=== PATIENT | female | born 1955 | race African-American/Black ===

== ENCOUNTER 2016-10-23 19:52 | Emergency (ER) | payer OTHER ==
[~2016-10-23] VITALS: Ht 161.3 cm; Wt 109.8 kg
[~2016-10-23 19:52] MED LIST: ALEVE220 MG PO; AMLODIPINE10 MG PO; AUGMENTIN 875875 MG PO; CEFUROXIME AXE250 MG PO; COZAAR 50MG TAB50 MG PO; EPINASTINE HCL IO; EPIPEN0.3 MG/0.3 IM; LEVAQUIN500 MG PO; LEVOCETIRIZINE D5 MG PO; LOVAZA1 GM PO; NASONEX0.05 MG/Ac NAS; NYSTOP100000 U/G TOP; PERCOCET 325 MG1 TA2 PO; PERCOCET 5-3251 EACH PO; PROAIR HFA0.09 MG/Ac INH; TOPROL XL 25MG25 MG PO; TRAMADOL50 MG PO; TRIAMCINOL0.1 %/453 TOP; VITAMIN D PO; [UNRECOGNIZED DRUG - OTHER] AD
--- NOTE | 2016-10-23 20:29 | ED DYSPNEA/ASTHMA COMPLAINT ---
History of Present Illness General Chief Complaint: Dyspnea (COPD, CHF, Other) Stated Complaint: DIFFICULTY BREATHING,COUGHING UP BLOOD Source: patient Exam Limitations: no limitations Vital Signs & Intake/Output Vital Signs & Intake/Output Vital Signs Date Time Temp Pulse Resp B/P B/P Pulse O2 O2 Flow FiO2 Mean Ox Delivery Rate 10/23 2341 96.5 79 18 138/79 95 Room Air 10/23 2157 98 10/23 1956 97.8 75 18 154/95 97 Room Air Allergies Coded Allergies: lisinopril (Severe, ANGIODEMA 07/14/15) tomato (Severe, LESIONS ON SCALP 07/14/15) shrimp (Mild, 07/14/15) cat dander (07/14/15) dog dander (07/14/15) grass pollen (07/14/15) pollen extracts (07/14/15) tree and shrub pollen (07/14/15) weed pollen (07/14/15) bacitracin (From Neosporin ([id number])) (Severe, ATE AWAY AT SKIN 07/14/15) neomycin (From Neosporin (dim-gim-dqvjh)) (Severe, ATE AWAY AT SKIN 07/14/15) polymyxin B (From Neosporin (sru-[id number])) (Severe, ATE AWAY AT SKIN 07/14/15) propoxyphene (Intermediate, PASSES OUT 07/14/15) hydrochlorothiazide (PASSES OUT 07/14/15) Uncoded Allergies: COCKROACHES (07/14/15) DUST (07/14/15) EGGPLANT (TONGUE SWELLS AND BLEEDING 09/13/14) Reconcile Medications Albuterol Sulfate (Proair Hfa) 0.09 MG/Actuation TERESSA 2 PUFF INH Q4-6P SHORTNESS OF BREATH (Reported) Albuterol Sulfate (Ventolin Hfa) 90 MCG HFA.AER.AD 2 PUF INH Q4-6 PRN PRN wheeze Amlodipine Besylate (Amlodipine) 10 MG TABLET 1 TAB PO DAILY BP (Reported) Cefuroxime Axetil (Cefuroxime) 250 MG TAB 1 TAB PO Q12 pneumonia CHOLECALCIFEROL (VITAMIN D3) (Vitamin D3) 1 TAB TAB 1 TAB PO DAILY SUPPLEMENT (Reported) EPINASTINE HCL (Epinastine HCl 5 Ml) 5 ML FLORA 1 DROP IO DAILY ALLERGIES ( Reported) Epinephrine (Epipen 2-Jagdeep) 0.3 MG/0.3 ML KIT 1 INJ IM DAILY PRN ANAPHYLAXIS ( Reported) Fluconazole (Diflucan) 150 MG TABLET 1 TAB PO ONCE yeast infection each week x 2 doses FLUOCINOLONE ACETONIDE OIL (Dermotic) 20 ML OIL 3 DROP AD TID INFECTION ( Reported) Levofloxacin (Levaquin) 500 MG TABLET 1 TAB PO DAILY bronchitis Losartan (Cozaar) 50 MG TAB 1 TAB PO DAILY HYPERTENSION (Reported) Naproxen Sodium (Aleve) 220 MG TABLET 1 TAB PO DAILY PRN PAIN (Reported) Wckxk-1-Pfih Ethyl Esters (Lovaza) 1 GM CAP 5 GM PO DAILY CHOLESTEROL ( Reported) Oxycodone HCl/Acetaminophen (Percocet 5-325 MG Tablet) 1 EACH TABLET 1-2 TAB PO Q6P PRN PAIN Oxycodone HCl/Acetaminophen (Percocet 5-325 MG Tablet) 5 MG-325 MG TABLET 1 TAB PO 4XDP PRN PAIN six...[id number] Prednisolone 15 MG/5 ML SOLUTION 10 ML PO QDAY ASTHMA Triage Note: PT TO ED C/O DIFFICULTY BREATHING SINCE 3RD WEEK IN SEPTEMBER. FINISHED AUGMENTIN ON 10/14. NEVER WENT AWAY. STATES GREEN SPUTUM WITH OCCASIONAL BLOOD. AFEBRILE IN TRIAGE. O2 SAT 97% ON RA. WAS 93% AFTER AMBULATING INTO TRIAGE Triage Nurses Notes Reviewed? yes Onset: Gradual Duration: week(s): Timing: recent history Severity: moderate Activities at Onset: none Modifying Factors: Improves With: rest. Worsens With: other (cough). Associated Symptoms: cough HPI: 61 yo woman h/o lupus, family history of PE, h/o reactive airway disease, presents with 3 weeks of cough and phlegm. She notes that she had a trial of augmentin, "which helped the phlegm a little bit... but now I have little bits of blood mixed in with the phlegm." She notes that she has right sided chest wall tenderness to palpation, worse with coughing. She has no fever, chills, nausea, vomiting, diarrhea. She notes, "I fell a few months ago and banged my knee and now I feel a lump on my knee cap." Past History Travel History Traveled to [place] past 21 day No Medical History Any Pertinent Medical History? see below for history Neurological: MIGRAINE (SEASONAL) EENT: CONJUNCTIVITIS PHARYNGITIS Cardiovascular: hypertension, hyperlipidemia Respiratory: bronchitis, COPD, pneumonia, HYPOXIA Gastrointestinal: ACID REFLUX HIGH CHOL Hepatic: NONE Renal: NONE Musculoskeletal: chronic back pain, disk herniation, fracture, osteoarthritis, LUPUS Psychiatric: chronic pain disorder Endocrine: PRE DIABETIC Blood Disorders: anemia Cancer(s): NONE REBAR WORKER/Reproductive: fibroid, miscarriage History of MRSA: No History of VRE: No History of CDIFF: No Tetanus Vaccine: 11/12/13 Surgical History Surgical History: non-contributory Psychosocial History Who do you live with Friend Services at Home None What is your primary language Georgian Tobacco Use: Never used ETOH Use: occasional use Illicit Drug Use: denies illicit drug use Family History Hx Contributory? No Review of Systems Review of Systems Constitutional: Reports: no symptoms. EENTM: Reports: no symptoms. Respiratory: Reports: no symptoms. Cardiovascular: Reports: no symptoms. GI: Reports: no symptoms. Genitourinary: Reports: no symptoms. Musculoskeletal: Reports: no symptoms. Skin: Reports: no symptoms. Neurological/Psychological: Reports: no symptoms. Hematologic/Endocrine: Reports: no symptoms. Immunologic/Allergic: Reports: no symptoms. All Other Systems: Reviewed and Negative Physical Exam Physical Exam General Appearance: well developed/nourished, mild distress Head: atraumatic, normal appearance Eyes: Bilateral: normal appearance. Ears, Nose, Throat: normal pharynx, normal ENT inspection Neck: normal inspection, supple, full range of motion Respiratory: normal breath sounds, rhonchi, right sided chest wall tenderness to palpation. Cardiovascular: regular rate/rhythm Gastrointestinal: normal bowel sounds, soft, non-tender, no organomegaly Extremities: normal inspection, normal capillary refill, normal range of motion, no edema Neurologic/Psych: no motor/sensory deficits, awake, alert, oriented x 3 Skin: intact, normal color, warm/dry Core Measures ACS in differential dx? No Severe Sepsis Present: No Septic Shock Present: No Progress Differential Diagnosis: asthma, bronchitis, COPD, musculoskeletal pain, pulmonary embolism Plan of Care: Orders Procedure Date/time Status URINALYSIS 10/23 2102 Complete TROPONIN LEVEL 10/23 2028 Complete D-DIMER 10/23 2028 Complete COMPREHENSIVE METABOLIC PANEL 10/23 2028 Complete CBC WITHOUT DIFFERENTIAL 10/23 2028 Complete EKG 10/23 2028 Active Laboratory Tests 10/23/162127: Anion Gap 10, Estimated GFR > 60, BUN/Creatinine Ratio 17.1, Glucose 92, Calcium 9.4, Total Bilirubin 0.6, AST 29, ALT 45, Alkaline Phosphatase 131 H, Troponin I < 0.01, Total Protein 7.6, Albumin 4.0, Globulin 3.6, Albumin/Globulin Ratio 1.1 10/23/162107: Urinalysis LIGHT H, Urine Color YEL, Urine Clarity HAZY H, Urine pH 6.0, Ur Specific [place] 1.020, Urine Protein NEG, Urine Ketones NEG, Urine Nitrite NEG, Urine Bilirubin NEG, Urine Urobilinogen 0.2, Ur Leukocyte Esterase NEG, Ur Microscopic SEDIMENT EXAMINED, Urine RBC 1-3, Urine WBC 1-3 H, Ur Epithelial Cells FEW, Urine Bacteria FEW H, Urine Mucus FEW, Urine Hemoglobin TRACE-INTACT , Urine Glucose NEG 10/23/162044: D-Dimer High Sensitivty < 200, CBC w Diff NO MAN DIFF REQ, RBC 5.25, MCV 87.0, MCH 28.0, RDW 14.5, MPV 8.1, Gran % 54.0, Lymphocytes % 35.1, Monocytes % 7.1, Eosinophils % 2.9, Basophils % 0.9, Absolute Granulocytes 3.6, Absolute Lymphocytes 2.3, Absolute Monocytes 0.5, Absolute Eosinophils 0.2, Absolute Basophils 0.1, PUBS MCHC 32.2 L Diagnostic Imaging: Viewed by Me: Radiology Read. Discussed w/RAD: Radiology Read. Radiology Impression: right knee... osteoarthrosis CXR Impression: no acute abnormality, no infiltrates, normal size heart, normal mediastinum Initial ED EKG: normal axis, normal intervals, normal p-waves, normal QRS complex, normal sinus rhythm Comments: PATIENT: JAYDEN RICE PRESENT AGE: 61 PATIENT ACCOUNT NO: [id number] : 56 LOCATION: [facility] ORDERING PHYSICIAN: DORIS COLE MD SERVICE DATE: 10/23/16 EXAM TYPE: RAD - XRY-KNEE COMPLETE RIGHT EXAMINATION: XR KNEE, RIGHT CLINICAL INFORMATION: Right knee pain. COMPARISON: None. TECHNIQUE: AP, lateral and bilateral oblique views of the right knee. FINDINGS: No appreciable fracture or dislocation of the right knee. There is mild tricompartmental osteoarthrosis of the right knee joint, notably within the medial tibiofemoral and patellofemoral compartments. A large enthesophyte is identified at the insertion point of the quadricep tendon. No significant joint effusion is identified. No abnormal soft tissue calcifications are noted. IMPRESSION: No acute osseous or articular abnormality of the right knee. Mild tricompartmental osteoarthrosis of the right knee joint, notably within the medial tibiofemoral and patellofemoral compartments. No significant right knee joint effusion. DICTATED BY: CHERY LOPEZ MD DATE/TIME DICTATED:10/23/162140 [employer]INSPRING STRIP GAUGER:FARZAD DATE/TIME TRANSCRIBED:10/23/162140 CONFIDENTIAL, DO NOT COPY WITHOUT APPROPRIATE AUTHORIZATION. <Electronically signed in Other Vendor System> SIGNED BY: CHERY LOPEZ MD 10/23/162145 PATIENT: JAYDEN RICE PRESENT AGE: 61 PATIENT ACCOUNT NO: [id number] : 56 LOCATION: [facility] ORDERING PHYSICIAN: DORIS COLE MD SERVICE DATE: 10/23/16-2028 EXAM TYPE: RAD - XRY-CHEST XRAY, PA AND LATERAL EXAMINATION: XR CHEST CLINICAL INFORMATION: Cough, dyspnea. COMPARISON: Chest x-ray 07/08/2016. TECHNIQUE: 2 views of the chest were obtained. FINDINGS: The lungs are well-expanded and clear without focal airspace consolidation. No pleural effusions or pneumothoraces are identified. Cardiomediastinal contours are within normal limits. Soft tissues are unremarkable. No acute osseous abnormality is identified. IMPRESSION: No acute pulmonary process. DICTATED BY: CHERY LOPEZ MD DATE/TIME DICTATED:10/23/162140 MAINSPRING STRIP GAUGER:FARZAD DATE/TIME TRANSCRIBED:10/23/162140 CONFIDENTIAL, DO NOT COPY WITHOUT APPROPRIATE AUTHORIZATION. <Electronically signed in Other Vendor System> SIGNED BY: CHERY LOPEZ MD 10/23/162144 Departure Departure Disposition: HOME OR SELF CARE Condition: Stable Clinical Impression Primary Impression: Bronchitis Secondary Impressions: Chest wall pain, Osteoarthrosis Referrals: SUSANNAH DOWELL APRN (PCP/Family) Departure Forms: Customer Survey General Discharge Information Prescriptions: Current Visit Scripts Levofloxacin (Levaquin) 1 TAB PO DAILY #10 TAB Albuterol Sulfate (Ventolin Hfa) 2 PUF INH Q4-6 PRN PRN wheeze #1 INHAL Ref 1 Oxycodone HCl/Acetaminophen (Percocet 5-325 MG Tablet) 1 TAB PO 4XDP PRN PAIN #6 TAB six...[id number] Prednisolone 10 ML PO QDAY #50 ML Fluconazole (Diflucan) 1 TAB PO ONCE #1 TAB each week x 2 doses Comments 10/23/16, 23:35pm... discussed at length... labs benign, dimer/troponin negative... pt safe for discharge.... will rx with levaquin/steroids/ albuterol... diflucan given history of yeast infections. Close follow up encouraged. Critical Care Note Critical Care Note Critical Care Time: non-applicable
[2016-10-23 21:05] LABS: ABSOLUTE BASOPHIL COUNT 0.1 /CUMM (0.0-0.2); ABSOLUTE EOSINOPHIL COUNT 0.2 /CUMM (0.0-0.7); ABSOLUTE GRANULOCYTE CT 3.6 /CUMM (1.4-6.5); ABSOLUTE LYMPH COUNT 2.3 /CUMM (1.2-3.4); ABSOLUTE MONOCYTE COUNT 0.5 /CUMM (0.10-0.60); BASOPHIL % 0.9 % (0.0-2.0); EOSINOPHIL % 2.9 % (0-5); HEMATOCRIT 45.7 % (37-47); MEAN CORPUSCULAR HGB CONC 32.2 G/DL (33.0-37.0); MEAN PLATELET VOLUME 8.1 FL (7.4-10.4); PLATELET COUNT 287 /CUMM (130-400); RBC DISTRIBUTION WIDTH 14.5 % (11.5-14.5); RED BLOOD CELL CT 5.25 /CUMM (4.20-5.40); WHITE BLOOD CELL COUNT 6.6 /CUMM (4.8-10.8)
--- NOTE | 2016-10-23 21:45 | RADIOLOGY REPORT ---
EXAMINATION: XR CHEST CLINICAL INFORMATION: Cough, dyspnea. COMPARISON: Chest x-ray 07/08/2016. TECHNIQUE: 2 views of the chest were obtained. FINDINGS: The lungs are well-expanded and clear without focal airspace consolidation. No pleural effusions or pneumothoraces are identified. Cardiomediastinal contours are within normal limits. Soft tissues are unremarkable. No acute osseous abnormality is identified. IMPRESSION: No acute pulmonary process.
--- NOTE | 2016-10-23 21:46 | RADIOLOGY REPORT ---
EXAMINATION: XR KNEE, RIGHT CLINICAL INFORMATION: Right knee pain. COMPARISON: None. TECHNIQUE: AP, lateral and bilateral oblique views of the right knee. FINDINGS: No appreciable fracture or dislocation of the right knee. There is mild tricompartmental osteoarthrosis of the right knee joint, notably within the medial tibiofemoral and patellofemoral compartments. A large enthesophyte is identified at the insertion point of the quadricep tendon. No significant joint effusion is identified. No abnormal soft tissue calcifications are noted. IMPRESSION: No acute osseous or articular abnormality of the right knee. Mild tricompartmental osteoarthrosis of the right knee joint, notably within the medial tibiofemoral and patellofemoral compartments. No significant right knee joint effusion.
[2016-10-23] MEDS ORDERED: VENTOLIN HFA18 GM INH (22:49)
[2016-10-23] MEDS ORDERED: PERCOCET 5-3251 EACH PO (22:49)
[2016-10-23] MEDS ORDERED: PREDNISOLO15 MG/5 M4 PO (22:49)
[2016-10-23] MEDS ORDERED: LEVAQUIN500 M1 PO (22:49)
[2016-10-23] MEDS ORDERED: DIFLUCAN150 M1 PO (23:36)
[2016-10-23 23:41] VITALS: BP 138/79
== END 2016-10-23 23:52 ==
LOC: ERH 19:52
PROVIDERS: Pediatrics
DX: J40 Bronchitis, not specified as acute or chronic (principal); R07.89 Other chest pain; M17.9 Osteoarthritis of knee, unspecified
CPT/HCPCS: 1263; 73562-RT; 81001; 93005; 93010

== ENCOUNTER → 2017-12-20 | Day surgery (SDC) | payer OTHER ==
[~2017-12-20] VITALS: Ht 160 cm; Wt 106.6 kg
[~2017-12-20] MED LIST changes: +ADVAIR 250-501 EACH INH; +AMLODIPINE BESY10 M1 PO; +BACTROBAN NASAL1 GM TOP; +DERMOTIC20 ML OT; +DIFLUCAN150 M1 PO; +ELESTAT5 ML OU; -EPINASTINE HCL IO; +EPIPEN 2-P0.3 MG/0.3 IM; -EPIPEN0.3 MG/0.3 IM; +HYDROXYCHLOROQ200 M2 PO; +LEVAQUIN500 M1 PO; +LEVOCETIRIZINE D5 M1 PO; +LIDOCAINE1 EACH TOP; +LOSARTAN POTASS50 M1 PO; +NAPROXEN500 M2 PO; +PERIOGARD473 ML PO; +PREDNISOLO15 MG/5 M4 PO; +VENTOLIN HFA18 GM INH; -VITAMIN D PO; +VITAMIN D31000 UNI1 PO; -[UNRECOGNIZED DRUG - OTHER] AD
--- NOTE | 2017-12-20 14:05 | Operative Report ---
Operative/Inv Procedure Report Surgery Date: 12/20/17 Name of Procedure: Right knee arthroscopic partial medial meniscectomy Chondroplasty patellofemoral joint including trochlea and medial compartment Pre-Operative Diagnosis: #1 right knee medial meniscal tear #2 right knee osteoarthritis Post-Operative Diagnosis: Same Estimated Blood Loss: scant Surgeon/Food Court Team Member: Amadeo JERRY,Tj Anesthesia: laryngeal mask airway Complications: None Condition: Stable Operative Indication: Patient is a 62-year-old woman who is a history of right knee pain. She was treated conservatively for a period of time. Unfortunately, she had increasing symptoms that interfere with normal activities of daily living. She stated she had primarily posterior knee pain. Her evaluation included MRI which revealed degenerative changes but also a complex medial meniscal tear. Due to her lack of improvement with normal conservative measures and symptoms interfere with normal activities, she wished to proceed with arthroscopic evaluation and treatment. It was explained to the patient that she does have osteoarthritis as well and the arthroscopy may help with symptoms that are directly related to the medial meniscal tear but will likely not change the symptoms directly related to the arthritis. She understands this. Risks benefits and expectations of the procedure were discussed which included but were not limited to persistent knee pain especially due to the osteoarthritis, infection and anesthesia risks, need for subsequent surgery progression of the osteoarthritis, DVT Operative/Procedure Note Note: Patient was brought to the operating room and transferred to the operating table. Once under appropriate anesthesia the right lower extremity was prepped and draped in standard fashion. Preoperative IV antibiotic's were given prophylactically. A standard infrapatellar lateral portal site was Established and scope was inserted. Patellofemoral compartment was visualized. 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 Also matching changes in the trochlea. This would be addressed later on the case. I dropped down into the medial compartment. In doing so there was no evidence of pathologic plica. The medial meniscus was visualized from anterior horn to his posterior horn. There was clearly a complex medial meniscal tear. I then established a medial infrapatellar portal site under direct vision and was able to complete the partial medial meniscectomy using the shaver. A mild chondroplasty was done also with the mild loose articular cartilage again, there was evidence of grade 2 changes of chondromalacia of both the medial tibial plateau and medial femoral condyle. Entered the notch. The ACL was visualized. It did appear to be somewhat attenuated consistent with a partial tear. There was no loose unstable portions that needed to be debrided. I placed leg into a figure 4 position. The lateral meniscus is found to be intact to its anterior horn and posterior horn but there was a degenerative type tear of the body of lateral meniscus. This was debrided using the shaver. Copious irrigation of the compartment followed. I then placed the leg into a flexed position at 90 and traveled up the lateral gutter. No evidence of loose bodies. I went back to the patellofemoral compartment and performed a chondroplasty of the undersurface of the patella and of the trochlear surface.. Copious irrigation followed. All fluid and this was removed from the knee and the portals were closed with nylon suture. Appropriate dressings were applied and patient was awakened and taken to recovery room in good condition. No intraoperative complications. Blood loss was minimal Discharge Disposition: PACU
== END ==
LOC: STS 02:40
DX: M23.203 Derangement of unspecified medial meniscus due to old tear or injury, right knee (principal); M22.41 Chondromalacia patellae, right knee; M17.11 Unilateral primary osteoarthritis, right knee; I10 Essential (primary) hypertension; J45.909 Unspecified asthma, uncomplicated
CPT/HCPCS: 81025; J0131; J0690; J2250; J2405